=== PATIENT | male | born 1990 | race African-American/Black ===

== ENCOUNTER 2023-06-29 10:57 | Emergency (ER) | payer SELFPAY ==
[~2023-06-29] VITALS: Ht 165.1 cm; Wt 62.0 kg
[2023-06-29 11:27] VITALS: BP 139/91; PULSE 98; RESP 16; TEMP 98.4; O2SAT 100
== END 2023-06-29 16:25 | disposition left against medical advice (07) ==
LOC: ER 11:05
DX: K59.00 Constipation, unspecified (principal); Z53.21 Procedure and treatment not carried out due to patient leaving prior to being seen by health care provider
CPT/HCPCS: 74176; 99281; Z7610 ×2